=== PATIENT | male | born 1975 | race Hispanic/Latino ===

== ENCOUNTER 2017-02-05 17:43 | Emergency (ER) | payer BC ==
[~2017-02-05] VITALS: Ht 180.3 cm; Wt 117.9 kg
--- NOTE | 2017-02-05 18:58 | Diagnostic Imaging Report ---
Lumbar spine complete CPT code: 93307 Indication: Back pain, no trauma Technique: A.P., lateral and bilateral oblique views of the lumbar spine obtained. Comparison: None. Findings: There are five non rib bearing vertebral bodies. Alignment is maintained on the AP and lateral views. The transverse processes are intact. The vertebral body heights are well maintained. There is no significant joint space narrowing or endplate sclerosis. Trace endplate osteophytic lipping of L4. There is mild disc space narrowing and endplate osteophytic lipping of T10-11. The facet joints and pedicles are normal. No abnormalities of the sacroiliac joints. The sacrum is normal. The spinous processes are normally aligned. There is no evidence of subluxation. The bowel gas pattern is unremarkable. IMPRESSION: 1. No evidence of subluxation or compression fracture involving the lumbar spine. 2. Very early degenerative changes of L4. Mild ureter changes of the lower thoracic spine. Signed by: Dr. Brandy Golden MD on 02/05/2017 6:54 PM
[2017-02-05] MEDS ORDERED: HYDROCODONE/APAP 5MG-325MG TAB PO ONE (19:00)
[2017-02-05] MEDS ORDERED: CYCLOBENZAPRINE HCL 10 MG TAB PO ONE (19:00)
[2017-02-05 20:20] VITALS: BP 134/91
== END 2017-02-05 20:30 | disposition home or self-care (01) ==
LOC: ER 17:43
DX: M54.31 Sciatica, right side (principal); F17.210 Nicotine dependence, cigarettes, uncomplicated; I10 Essential (primary) hypertension
CPT/HCPCS: 72110; 99283

== ENCOUNTER 2021-05-07 22:12 | Emergency (ER) | payer SELFPAY ==
[~2021-05-07] VITALS: Ht 180.3 cm; Wt 142.9 kg
[2021-05-07] MEDS ORDERED: CEFDINIR300 MG PO (23:04)
== END 2021-05-07 23:26 | disposition home or self-care (01) ==
LOC: FSED 22:35
DX: J02.9 Acute pharyngitis, unspecified (principal); I10 Essential (primary) hypertension; J45.909 Unspecified asthma, uncomplicated; E66.01 Morbid (severe) obesity due to excess calories; F17.210 Nicotine dependence, cigarettes, uncomplicated
CPT/HCPCS: 83518; 99283

== ENCOUNTER 2023-09-20 04:30 | Emergency (ER) | payer BC, OTHER ==
[~2023-09-20] VITALS: Ht 180.3 cm; Wt 142.9 kg
[~2023-09-20 04:30] MED LIST: CEFDINIR300 MG PO
[2023-09-20 04:45] VITALS: PULSE 85; RESP 20; TEMP 98; O2SAT 96
[2023-09-20] MEDS: IBUPROFEN 600 MG TAB PO STA (05:18)
[2023-09-20] MEDS ORDERED: IBUPROFEN 600 MG TAB ONE (05:19)
[2023-09-20] MEDS ORDERED: IBUPROFEN800 MG PO (05:29)
== END 2023-09-20 05:58 | disposition home or self-care (01) ==
LOC: FSED 04:49
DX: S60.222A Contusion of left hand, initial encounter (principal); W22.09XA Striking against other stationary object, initial encounter; Y92.89 Other specified places as the place of occurrence of the external cause; I10 Essential (primary) hypertension; J45.909 Unspecified asthma, uncomplicated; E66.01 Morbid (severe) obesity due to excess calories; F17.210 Nicotine dependence, cigarettes, uncomplicated
CPT/HCPCS: 99283